=== PATIENT | male | born 1995 | race Two or more races ===

== ENCOUNTER 2024-05-08 17:54 | Emergency (ER) | payer MEDICAID, OTHER ==
[~2024-05-08] VITALS: Ht 172.7 cm; Wt 88.6 kg
[2024-05-08 18:31] LABS: Urine Bacteria None Seen /hpf (None Seen)
[2024-05-08 19:12] LABS: Urine Blood Negative /uL (Negative); Urine Clarity Clear (Clear); Urine Color Light-Yellow (Yellow); Urine Protein, UAD TRACE (Negative); Urine Specific Gravity 1.018 (1.001-1.035); Urine Squamous Epithelial Cell None Seen /hpf (<5); Urine Urobilinogen Normal (Negative); Urine WBC 2 /HPF (0-3)
--- NOTE | 2024-05-08 19:48 | ED.PDOC ---
History of Present Illness HPI Comments 29 y/o overweight M, with a history of bipolar disorder, depression, and suicidal ideations, presents with c/o suicidal ideations and auditory hallucinations, today. Patient endorses on onset of persisting suicidal thoughts, that include cutting his own wrists with sharp objects, and "voices" in his head, endorsing him to harm himself, for the past 2x days. Patient reports on having similar symptoms and being admitted to [facility] for it in the past, with latest admission being less than a month ago. He reports being placed on Zyprexa following said admission but failed to pick said medication from his pharmacy since then. He denies any homicidal ideations, visual hallucinations, current places to end his life, or other associated symptoms or modifiers at this time. Chief Complaint: Suicidal Time Seen by MD: 18:30 Reviewed Notes: Nurses Notes, Medications, Allergies Information Source: Patient Mode of Arrival: Ambulatory Past Medical History PAST MEDICAL HISTORY: Depression Past Medical History (Other): bipolar disorder, suicidal ideations Surgical History: Denies all surgeries Family History Family History: Unknown Social History Smoker: Cigarettes Alcohol: Occasionally Drugs: Marijuana Lives In: Home All Other Systems: Reviewed and Negative (Comprehensive systems review obtained and negative except for what is stated in the HPI.) Physical Exam General Appearance: No Apparent Distress, Other (overweightexpressess suicidal ideations but has no plans with exception of thoughts on cutting his wrists with a sharp object) HEENT: Normal ENT Inspection, Pharynx Normal, TMs Normal Neck: Full Range of Motion, Non-Tender, Normal, Normal Inspection Respiratory: Chest Non-Tender, Lungs Clear, No Accessory Muscle Use, No Respiratory Distress, Normal Breath Sounds Cardiovascular: No Edema, No JVD, No Murmur, No Gallop, Normal Peripheral Pulses, Regular Rate/Rhythm Breast Exam: Deferred Gastrointestinal: No Organomegaly, Non Tender, No Pulsatile Mass, Normal Bowel Sounds, Soft Genitalia: Deferred Pelvic: Deferred Rectal: Deferred Extremities: No calf tenderness, Normal capillary refill, Normal inspection, Normal range of motion, Non-tender, No pedal edema Musculoskeletal : Apperance: Normal 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 Was a procedure done?: No Differential Dx Considerations may include: suicidal, depression, hopelessness, bipolar disorder X-Ray, Labs, Meds, VS Vital Signs Date Time Temp Pulse Resp B/P (MAP) Pulse Ox O2 Delivery O2 Flow Rate FiO2 05/08/24 21:12 Room Air* 0 21 05/08/24 18:11 98.4 108 16 155/98 (117) 96 98.4 Lab Test 05/08/24 23:10 05/08/24 18:10 Range/Units White Blood Count 9.5 4.4-10.8 10^3/uL Red Blood Count 4.91 4.5-5.90 10^6/uL Hemoglobin 14.3 13.5-17.5 g/dL Hematocrit 41.9 41.0-53.0 % Mean Corpuscular Volume 85.2 80.0-100.0 fL Mean Corpuscular Hemoglobin 29.2 28.0-32.0 pg Mean Corpuscular Hemoglobin Concent 34.2 32.0-36.0 g/dL Red Cell Distribution Width 14.9 H 11.8-14.3 % Platelet Count 372 140-450 10^3/uL Mean Platelet Volume 7.3 6.9-10.8 fL Neutrophils (%) (Auto) 66.0 37.0-80.0 % Lymphocytes (%) (Auto) 19.8 10.0-50.0 % Monocytes (%) (Auto) 8.5 0.0-12.0 % Eosinophils (%) (Auto) 4.7 0.0-7.0 % Basophils (%) (Auto) 1.0 0.0-2.0 % Neutrophils # (Auto) 6.3 1.6-8.6 10 ^3/uL Lymphocytes # (Auto) 1.9 0.4-5.4 10 ^3/uL Monocytes # (Auto) 0.8 0-1.3 10 ^3/uL Eosinophils # (Auto) 0.4 0-0.8 10 ^3/uL Basophils # (Auto) 0.1 0-0.2 10 ^3/uL Nucleated Red Blood Cells 0.0 % Sodium Level 141 136-145 mmol/L Potassium Level 3.8 3.5-5.1 mmol/L Chloride Level 109 H 98-107 mmol/L Carbon Dioxide Level 26 20-31 mmol/L Anion Gap 6 5-15 Blood Urea Nitrogen 11 9-23 mg/dL Creatinine 1.01 0.700-1.30 mg/dL Glomerular Filtration Rate Calc 102 >90 mL/min BUN/Creatinine Ratio 10.9 10.0-20.0 Serum Glucose 80 74-106 mg/dL Calcium Level 10.0 8.7-10.4 mg/dL Salicylates Level < 3.0 -30 mg/dL Acetaminophen Level 4.0 L 10.0-20.0 UG/ML Plasma/Serum Blood Alcohol 5.1 <10 mg/dL Urine Color Light-yellow Yellow Urine Clarity Clear Clear Urine pH 6.0 5.0-9.0 Urine Specific [place] 1.018 1.001-1.035 Urine Protein Trace H Negative Urine Ketones Negative Negative Urine Blood Negative Negative /uL Urine Nitrite Negative Negative Urine Bilirubin Negative Negative Urine Urobilinogen Normal Negative mg/dL Urine Leukocyte Esterase Negative Negative /uL Urine RBC 2 0 - 3 /hpf Urine Microscopic WBC 2 0-3 /HPF Urine Squamous Epithelial Cells None seen <5 /hpf Urine Bacteria None seen None Seen /hpf Urine Glucose Normal Normal mg/dL Urine Opiates Screen Neg NEGATIVE Urine Fentanyl Screen Neg NEGATIVE Urine Barbiturates Screen Neg NEGATIVE Urine Phencyclidine Screen Neg NEGATIVE Urine Amphetamines Screen Neg NEGATIVE Urine Benzodiazepines Screen Neg NEGATIVE Urine Cocaine Screen Neg NEGATIVE Urine Cannabinoids Screen Neg NEGATIVE Current Medications Medications (Trade) Dose Ordered Sig/Alba Route Start Time Stop Time Status Last Admin Acetaminophen (Tylenol Tablet) 650 mg ONCE ONCE PO 05/08/24 20:15 05/08/24 20:16 DC 05/08/24 20:24 Time of 1ST Reevaluation: 19:00 Reevaluation 1ST: Unchanged Patient Education/Counseling: Diagnosis, Treatment Family Education/Counseling: No Family Present Additional Information Previous medical encounters reviewed: n/a The following tests were ordered, and results were reviewed by me: CISCO Additional Information was gathered from interviewing the following independent historians: n/a I reviewed and agreed with the following test results read by other providers: n/a I discussed treatment and results with medical personnel and: Patient pt is pending telepsych evaluation. i will sign out to Davis at shift change Departure 1 Departure Time of Disposition: 01:05 Impression: Primary Impression: Suicidal ideation Disposition: 30 STILL A PATIENT Condition: Stable Discharged With: Self Critical Care Note Critical Care Time?: Yes (55 min-critical care time only) Critical care comment: Due to concerns for patients condition deteriorating, the care required my highest level of attention and readiness to intervene. I assessed the patient, reviewed the medical records, ordered the appropriate tests and treatments, then reassessed for results and responsiveness. I communicated with medical personnel and consultants and formulated a plan of care. Total critical care time excludes any procedures Stability Stability form required: No Heart Score Heart Score: Heart Score Response (Comments) Value History N/A 0 EKG N/A 0 Age N/A 0 Risk Factors N/A 0 Troponin N/A 0 Total 0 I personally scribed for EDGAR HUANG MD ([email or web address]) on 05/08/24 at 19:48. Electronically submitted by Capo Reyes [email or web address]). EDGAR HUANG MD May 08, 2024 19:48
[2024-05-08] MEDS: ACETAMINOPHEN 325 MG TAB PO ONE (20:24)
[2024-05-08] MEDS: HALOPERIDOL LACTATE 5 MG/ML INJ VIAL IM ONE (22:56)
[2024-05-08 23:27] LABS: Cannabinoid Screen, Urine Neg (NEGATIVE)
[2024-05-08 23:28] LABS: Basophils # (auto) 0.1 10 ^3/uL (0-0.2); Eosinophils # (auto) 0.4 10 ^3/uL (0-0.8); Eosinophils % (auto) 4.7 % (0.0-7.0); Hematocrit 41.9 % (41.0-53.0); Hemoglobin 14.3 g/dL (13.5-17.5); Lymphocytes # (auto) 1.9 10 ^3/uL (0.4-5.4); Lymphocytes % (auto) 19.8 % (10.0-50.0); Mean Corpuscular Hemoglobin 29.2 pg (28.0-32.0); Mean Corpuscular Hgb Conc. 34.2 g/dL (32.0-36.0); Mean Corpuscular Volume 85.2 fL (80.0-100.0); Monocytes # (auto) 0.8 10 ^3/uL (0-1.3); Monocytes % (auto) 8.5 % (0.0-12.0); Neutrophils # (auto) 6.3 10 ^3/uL (1.6-8.6); Platelet Count (auto) 372 10^3/uL (140-450); Potassium 3.8 mmol/L (3.5-5.1); Red Blood Cells 4.91 10^6/uL (4.5-5.90); Red Cell Distribution Width 14.9 % (11.8-14.3); Sodium 141 mmol/L (136-145); White Blood Cell 9.5 10^3/uL (4.4-10.8)
[2024-05-08 23:29] LABS: Carbon Dioxide 26 mmol/L (20-31)
[2024-05-08 23:34] LABS: BUN/Creatinine Ratio 10.9 (10.0-20.0); Blood Urea Nitrogen 11 mg/dL (9-23); Glucose 80 mg/dL (74-106)
[2024-05-08 23:35] LABS: Blood Alcohol 5.1 mg/dL (<10)
[2024-05-08 23:45] LABS: Salicylate < 3.0 mg/dL (-30)
[2024-05-08 23:48] LABS: Amphetamine Screen, Urine Neg (NEGATIVE); Barbiturate Scree,Urine Neg (NEGATIVE); Benzodiazephine Screen, Urine Neg (NEGATIVE); Cocaine Screen, Urine Neg (NEGATIVE); Opiate Scree,Urine Neg (NEGATIVE); Phencyclidine Screen, Urine Neg (NEGATIVE)
[2024-05-08 23:56] LABS: Anion Gap 6 (5-15)
[2024-05-09 00:03] LABS: Chloride 109 mmol/L (98-107)
--- NOTE | 2024-05-09 02:18 | DVHINCON2 ---
Date of Service if different f: May 09, 2024 Time of Service: 01:57 Consultation ([facility]) Consulting Physician: JOSE FERREIRA MD Labs Laboratory Tests Test 05/08/24 18:10 05/08/24 23:10 Urine Color Light-yellow (Yellow) Urine Clarity Clear (Clear) Urine pH 6.0 (5.0-9.0) Urine Specific [place] 1.018 (1.001-1.035) Urine Protein Trace (Negative) Urine Ketones Negative (Negative) Urine Blood Negative /uL (Negative) Urine Nitrite Negative (Negative) Urine Bilirubin Negative (Negative) Urine Urobilinogen Normal mg/dL (Negative) Urine Leukocyte Esterase Negative /uL (Negative) Urine RBC 2 /hpf (0 - 3) Urine Microscopic WBC 2 /HPF (0-3) Urine Squamous Epithelial Cells None seen /hpf (<5) Urine Bacteria None seen /hpf (None Seen) Urine Glucose Normal mg/dL (Normal) Urine Opiates Screen Neg (NEGATIVE) Urine Fentanyl Screen Neg (NEGATIVE) Urine Barbiturates Screen Neg (NEGATIVE) Urine Phencyclidine Screen Neg (NEGATIVE) Urine Amphetamines Screen Neg (NEGATIVE) Urine Benzodiazepines Screen Neg (NEGATIVE) Urine Cocaine Screen Neg (NEGATIVE) Urine Cannabinoids Screen Neg (NEGATIVE) White Blood Count 9.5 10^3/uL (4.4-10.8) Red Blood Count 4.91 10^6/uL (4.5-5.90) Hemoglobin 14.3 g/dL (13.5-17.5) Hematocrit 41.9 % (41.0-53.0) Mean Corpuscular Volume 85.2 fL (80.0-100.0) Mean Corpuscular Hemoglobin 29.2 pg (28.0-32.0) Mean Corpuscular Hemoglobin Concent 34.2 g/dL (32.0-36.0) Red Cell Distribution Width 14.9 % (11.8-14.3) Platelet Count 372 10^3/uL (140-450) Mean Platelet Volume 7.3 fL (6.9-10.8) Neutrophils (%) (Auto) 66.0 % (37.0-80.0) Lymphocytes (%) (Auto) 19.8 % (10.0-50.0) Monocytes (%) (Auto) 8.5 % (0.0-12.0) Eosinophils (%) (Auto) 4.7 % (0.0-7.0) Basophils (%) (Auto) 1.0 % (0.0-2.0) Neutrophils # (Auto) 6.3 10 ^3/uL (1.6-8.6) Lymphocytes # (Auto) 1.9 10 ^3/uL (0.4-5.4) Monocytes # (Auto) 0.8 10 ^3/uL (0-1.3) Eosinophils # (Auto) 0.4 10 ^3/uL (0-0.8) Basophils # (Auto) 0.1 10 ^3/uL (0-0.2) Nucleated Red Blood Cells 0.0 % Sodium Level 141 mmol/L (136-145) Potassium Level 3.8 mmol/L (3.5-5.1) Chloride Level 109 mmol/L (98-107) Carbon Dioxide Level 26 mmol/L (20-31) Anion Gap 6 (5-15) Blood Urea Nitrogen 11 mg/dL (9-23) Creatinine 1.01 mg/dL (0.700-1.30) Glomerular Filtration Rate Calc 102 mL/min (>90) BUN/Creatinine Ratio 10.9 (10.0-20.0) Serum Glucose 80 mg/dL (74-106) Calcium Level 10.0 mg/dL (8.7-10.4) Salicylates Level < 3.0 mg/dL (-30) Acetaminophen Level 4.0 UG/ML (10.0-20.0) Plasma/Serum Blood Alcohol 5.1 mg/dL (<10) Appearance: Stated age Psychomotor activity: Agitated Behavioral: Uncooperative Eye contact: Intense Speech: WNL Affect: Mood Congruent Mood: Depressed, Dysphoric Thought processes: Disorganized Thought content: Hallucinations Suicidal ideations: Present Homicidal ideations: Absent Orientation: Person, Place, Time, Situation Memory intact: Recent Intellect: Average Abstractability: Marginal Concentration: Limited Attention: Limited Judgement: Poor Insight: Poor Vitals Vital Signs Date Time Temp Pulse Resp B/P (MAP) Pulse Ox O2 Delivery O2 Flow Rate FiO2 05/08/24 21:12 Room Air* 0 21 05/08/24 18:11 98.4 108 16 155/98 (117) 96 98.4 Treatment plan discussed: With staff Medication adjusted: Yes Labs ordered: No Psychotherapy provided: No Type: Voluntary History of Present Illness Reason for Consult : psychiatric evaluation PER ED PHYSICIAN: 29 y/o overweight M, with a history of bipolar disorder, depression, and suicidal ideations, presents with c/o suicidal ideations and auditory hallucinations, today. Patient endorses on onset of persisting suicidal thoughts, that include cutting his own wrists with sharp objects, and "voices" in his head, endorsing him to harm himself, for the past 2x days. Patient reports on having similar symptoms and being admitted to [facility] psychiatric facility for it in the past, with latest admission being less than a month ago. He reports being placed on Zyprexa following said admission but failed to pick said medication from his pharmacy since then. He denies any homicidal ideations, visual hallucinations, current places to end his life, or other associated symptoms or modifiers at this time. PSYCHIATRIST HPI: The patient was seen and evaluated at [facility] ED via telepsychiatry platform. 29 yr old male reported he said I have probably extremely loud voices. He said his voices are telling him to kill people. He stated he feels very sad and depressed. He said he the voices are to loud that he is having difficulty thinking. He said he'd like to be admitted to the hospital and get some medicine so he can reduce the voices and cope with them. He was not very forthcoming answering questions, but agreed to voluntary admission to [facility]. He denied having homicidal ideation, and denied having visual hallucinations. Past Psychiatric History : Last hospitalization at [facility] in Mar 2024. No past suicide attempts. Diagnosed with bipolar disorder. Past Medical History : none Current medications: none Substance use: Smokes marijuana daily. Started meth one month ago. He denied any recent use. Drinks alcohol occasionally. Denied use of other substances. Social History : Would not answer about where he lives or if on disability. Diagnosis: UNSPECIFIED MOOD DISORDER; Rule out ICU delirium Formulation: This 29 yr old male appears to suffer from psychosis and is suicidal and a moderate risk for self-harm. He may benefit from admission to a behavioral health unit and starting on antipsychotic medication. He meets criteria for involuntary hold on basis of danger to self, but agrees to voluntary admission. Plan: 1. Transfer to behavioral health unit for observation, stabilization and treatment when bed available. 2. Legal-voluntary. If patient is reffusin voluntary hosptialization or no voluntary beds are available, please evaluate for 5150 hold. 3. Medications: Recommend starting Zyprexa 5mg BID Ativan 2mg BID 4. Case discussed with ED Physician Dr Licona. 5. Please recontact psychiatry for further follow up or reevaluation. Assessment/Diagnosis/Plan Reviewed: Labs, Medications, Previous Orders JOSE FERREIRA MD May 09, 2024 01:58
[2024-05-09] MEDS: HALOPERIDOL LACTATE 5 MG/ML INJ VIAL IM ONE (02:25)
[2024-05-09] MEDS: LORazepam 0.5 MG TAB PO ONE (02:55)
[2024-05-09] MEDS: OLANZapine 5 MG TAB PO ONE (02:55)
[2024-05-09 13:00] VITALS: BP 105/58; PULSE 86; RESP 17; TEMP 97.9; O2SAT 99
== END 2024-05-09 14:20 | disposition short-term general hospital (02) ==
LOC: ER 17:54
DX: R45.851 Suicidal ideations (principal); F32.A Depression, unspecified; E66.3 Overweight; F17.210 Nicotine dependence, cigarettes, uncomplicated
CPT/HCPCS: 36415; 80048; 80307; 80320; 80329; 81001; 85025